=== PATIENT | female | born 1995 | race African-American/Black ===

== ENCOUNTER 2018-11-22 15:23 | Emergency (ER) | payer MEDICAID, OTHER ==
[~2018-11-22] VITALS: Ht 157.5 cm; Wt 131.8 kg
[~2018-11-22 15:23] MED LIST: ALBU6.7H IH; FERR1TAB45 PO; PREN-154 PO
[2018-11-22] MEDS ORDERED: OXYMETAZOLINE HCL 0.05% 15 ML NASAL SPRAY NASAL ONE (20:00)
[2018-11-22 20:10] VITALS: BP 125/62
== END 2018-11-22 20:33 | disposition home or self-care (01) ==
LOC: EMS 15:25
DX: H66.93 Otitis media, unspecified, bilateral (principal); R03.0 Elevated blood-pressure reading, without diagnosis of hypertension; J45.909 Unspecified asthma, uncomplicated

== ENCOUNTER 2024-05-26 18:55 | Emergency (ER) | payer OTHER ==
[~2024-05-26] VITALS: Ht 160 cm; Wt 136.4 kg
[~2024-05-26 18:55] MED LIST changes: -ALBU6.7H IH; +ALBU6.7H14 IH; -FERR1TAB45 PO; -PREN-154 PO
[2024-05-26 19:01] VITALS: TEMP 98.9
[2024-05-26 19:28] LABS: COVID AG,FIA SOURCE NASAL SWAB
[2024-05-26 20:00] LABS: SARS-COV2 (COVID) ANTIGEN,FIA Negative (Negative)
[2024-05-26 20:02] LABS: INFLUENZA TYPE A NEGATIVE FOR TYPE A (NEGATIVE); INFLUENZA TYPE B NEGATIVE FOR TYPE B (NEGATIVE)
[2024-05-26] MEDS: ACETAMINOPHEN 500 MG TABLET PO ONE (21:10)
[2024-05-26] MEDS: KETOROLAC TROMETHAMINE 30 MG/ML VIAL IM ONE (21:56)
[2024-05-26] MEDS: LIDOCAINE 5% TRANSDERMAL PATCH TD ONE (22:28)
[2024-05-26] MEDS ORDERED: ALBU18HF12 IH (22:42)
[2024-05-26] MEDS ORDERED: CYCL-448 PO (22:43)
[2024-05-27 00:13] VITALS: BP 114/61; PULSE 64; RESP 18; O2SAT 100
== END 2024-05-27 00:36 | disposition home or self-care (01) ==
LOC: EMS 18:55
DX: J06.9 Acute upper respiratory infection, unspecified (principal); B97.89 Other viral agents as the cause of diseases classified elsewhere; M54.50 Low back pain, unspecified; M25.511 Pain in right shoulder; J45.909 Unspecified asthma, uncomplicated; Z90.49 Acquired absence of other specified parts of digestive tract; Z20.822 Contact with and (suspected) exposure to COVID-19
CPT/HCPCS: 99284; 87426; 87420; 84703; 87804; 36415; 72100; 73030; 96372; J1885